=== PATIENT | male | born 1975 | race Caucasian/White ===

== ENCOUNTER 2016-07-09 05:32 | Day surgery (SDC) | payer OTHER ==
[~2016-07-09] VITALS: Ht 193 cm; Wt 118.6 kg
[2016-07-09] VITALS (8 sets, daily range): BP systolic 132–142; BP diastolic 86–96; PULSE 67–81; TEMP 97.3–97.5
[~2016-07-09 05:32] MED LIST: DUO-KAPS1 CAP PO; FLEXERIL 1010 MG/TAB PO; GLUCOSAMINE & C1 CA1 PO; MOTRIN 800800 MG/TAB PO
[2016-07-09] MEDS ORDERED: TURMERIC500 MG PO (06:12)
[2016-07-09] MEDS ORDERED: MOTRIN 600600 MG/TAB PO (10:14)
[2016-07-09] MEDS ORDERED: NORCO 325 MG-51 TAB PO (10:15)
== END 2016-07-09 12:10 | disposition home or self-care (01) ==
LOC: SDCO 05:32
DX: K40.91 Unilateral inguinal hernia, without obstruction or gangrene, recurrent (principal); E78.5 Hyperlipidemia, unspecified
CPT/HCPCS: A4315; C1781; J0330; J0690; J1100; J2270; J2405; J2704; J3010; J7120